=== PATIENT | male | born 1995 | race Caucasian/White ===

== ENCOUNTER 2020-10-14 10:43 | Emergency (ER) | payer OTHER, SELFPAY ==
--- NOTE | 2020-10-14 15:00 | RAD ---
RIGHT HAND 4 VIEWS: INDICATION: Pain. Patient unable to straighten 5th PIP joint. Deformity of the distal 5th metacarpal is seen with volar angulation of the metacarpal head indicatin g old healed fracture. No evidence of acute fracture or acute osseous abnormality. IMPRESSION: 1. Flexion deformity of the proximal interphalangeal joint of the 5th digit. 2. Deformity of the distal 5th metacarpal consistent with old fracture. POS: AGW
== END 2020-10-14 13:10 | disposition home or self-care (01) ==
LOC: ERS 10:43
DX: S62.306A Unspecified fracture of fifth metacarpal bone, right hand, initial encounter for closed fracture (principal); X50.0XXA Overexertion from strenuous movement or load, initial encounter

== ENCOUNTER 2022-02-18 09:04 | Emergency (ER) | payer SELFPAY | END 2022-02-18 09:43 | disposition home or self-care (01) | LOC: ERS 09:04 | DX: S60.031A Contusion of right middle finger without damage to nail, initial encounter (principal); W23.0XXA Caught, crushed, jammed, or pinched between moving objects, initial encounter ==